=== PATIENT | female | born 1995 ===

== ENCOUNTER 2025-07-17 09:51 | Day surgery (SDC) | payer OTHER, SELFPAY ==
--- NOTE | 2025-07-17 | PATH_ITS ---
[facility] Accession Number: [id number] No. of containers..05 Tissue . 01 Material submitted: . PART A: small bowel - ILEUM,TERMINAL PART B: ileo-cecal valve - ILEAL CECAL VALVE PART C: colon - RIGHT COLON PART D: colon - TRANSVERSE COLON PART E: colon - LEFT COLON . 01 Clinical history: . HEMORRHAGE OF ANUS AND RECTUM. . 01 Diagnosis: A. TERMINAL ILEUM: Small bowel mucosa with no diagnostic abnormality. Negative for active inflammation, dysplasia, and malignancy. . B. ILEOCECAL VALVE: Colonic mucosa with focal ulceration. No infectious organisms, dysplasia, or malignancy. See comment. . C. RIGHT COLON: Colonic mucosa with no diagnostic abnormality. Negative for active, chronic, and microscopic colitis. Negative for dysplasia and malignancy. . D. TRANSVERSE COLON: Colonic mucosa with no diagnostic abnormality. Negative for active, chronic, and microscopic colitis. Negative for dysplasia and malignancy. . E. LEFT COLON: Colonic mucosa with no diagnostic abnormality. Negative for active, chronic, and microscopic colitis. Negative for dysplasia and malignancy. [facility] 07/27/2025 [facility]7 Local . 01 Comment: B. The histologic features raise a differential including drug-induced ulceration as well as infectious etiologies, amongst other possibilities. Clinical corrlation is recommended. . 01 Electronically signed: . Ashli Andre MD, Pathologist NPI- [id number] . 01 Gross description: . A. Received in formalin labeled with two patient identifiers and terminal ileum, and consists of two tobias tissues averaging 0.3 cm in greatest dimension which are submitted in toto in cassette A1. B. Received in formalin labeled with two patient identifiers and ileocecal valve, and consists of two tobias tissues averaging 0.2 cm in greatest dimension which are submitted in toto in cassette B1. C. Received in formalin labeled with two patient identifiers and right colon, and consists of two tobias tissues averaging 0.3 cm in greatest dimension which are submitted in toto in cassette C1. D. Received in formalin labeled with two patient identifiers and transverse colon, and consists of two tobias tissues averaging 0.2 cm in greatest dimension which are submitted in toto in cassette D1. ([id number]) . E. Received in formalin labeled with two patient identifiers and left colon, and consists of a single, 0.3 cm in greatest dimension tobias soft tissue. Submitted in toto in cassette E1. ([id number]) /[facility] 07/22/2025 2244 Local . 01 Pathologist provided ICD-10: K52.9, K62.5 . 01 CPT . 646246, 688250, 578655, 662188, 413572 Specimen Comment: A courtesy copy of this report has been sent to [phone] Performed at: [address] [address], [place], [place] [id number] MD Magdy Fish MD Phone: [phone]
[2025-07-17 10:30] VITALS: BP 115/78; PULSE 83; RESP 16; TEMP 36.8; O2SAT 100
--- NOTE | 2025-07-17 10:37 | PM.HP.IH.1 ---
History of Present Illness History of Present Illness Date Patient Seen: 07/17/25 Time Patient Seen: 10:37 Chief complaint: Dx Colonoscopy w/poss bx Narrative: Sandra is a 29-year-old woman with rectal bleeding and pain with a suspected fissure. See the prior office notes for details. PFSH Social History Smoking Status: Never smoker Meds Home Medications and Allergies Home Medications ?Medication ?Instructions ?Recorded ?Confirmed ?Type albuterol sulfate 90 mcg/actuation 2 puff inhalation Q6H PRN 02/16/25 07/17/25 History aerosol inhaler shortness of breath or wheezing Allergies Allergy/AdvReac Type Severity Reaction Status Date / Time egg Allergy Verified 07/17/25 10:27 Exam Vital Signs (past 8 hours): - 07/17/25 10:30 Temperature 98.2 F Pulse Rate 83 Respiratory Rate 16 Blood Pressure 115/78 Pulse Oximetry 100 Oxygen Delivery Method Room Air Oxygen Delivery Method Room Air Const General: No acute distress Assessment & Plan Assessment and plan (1) Blood in stool: Status: Acute Plan Colonoscopy Time-Based Coding :: [TOTAL MINUTES] spent with patient and on the chart (including review of chart, obtaining history, exam, reviewing outside data, placing orders, documenting exam and treatment plan, and counseling patient) on [DATE]. [employer] Document charge(s): No
[2025-07-17] MEDS: LACTATED RINGERS 1,000 ML 42 ML IV (10:42)
--- NOTE | 2025-07-17 11:10 | P.OP.COLON_ITS ---
Operative Date/Time/Diagnoses Date of procedure: 07/17/25 Time of procedure: 11:13 Pre-op diagnosis: Rectal bleeding Post-op diagnosis: same Procedure & Clinicians Study performed: Colonoscopy Same procedure(s) as scheduled: Yes Surgeon: Jl Ng Anesthesia Type: MAC +/- Procedure Notes Procedure in detail: Surgeon: Jl Ng MD Anesthesia: Karo Josee ASSOCIATE PROFESSOR OF GEOGRAPHY Procedure: The patient was brought to the endoscopy suite, placed in left lateral decubitus position. The patient was connected to monitoring devices. A time-out was performed. Sedation was administered. Once the patient was adequately sedated, a digital rectal exam was performed and was normal. No fissure was seen. The scope was then inserted and advanced to the cecum where the appendiceal orifice was identified and photographed. Terminal ileum was intubated. There appeared to be some mild terminal ileitis and random biopsies were taken from the terminal ileum with cold forceps. The scope was then slowly withdrawn. There was a small ulceration on the ileocecal valve and biopsies were taken it was bowel mucosa adjacent to the ulcer with forceps. Random biopsies were taken from the right colon, transverse colon and left colon. There were no gross abnormalities. The scope was retroflexed in the rectum. No other abnormalities were identified. The scope was straightened and removed. The patient was awakened and brought to recovery. Scope withdrawal time: 10 minutes Sedation time: 14 minutes EBL: 5 mL Findings: Mild terminal ileitis and small ulcer on the ileocecal valve Post-procedure Disposition: PACU
[2025-07-17 11:12] VITALS: BP 122/58; PULSE 74; RESP 10; TEMP 36.2; O2SAT 100
[2025-07-17 11:15] VITALS: BP 112/68; PULSE 75; RESP 22; O2SAT 100
[2025-07-17 11:23] VITALS: BP 126/74; PULSE 72; RESP 19; TEMP 36.2; O2SAT 100
== END 2025-07-17 11:33 | disposition home or self-care (01) ==
PROVIDERS: Referring Provider Surgery; Visit Provider Surgery
PROC: 0DJD8ZZ Inspection of Lower Intestinal Tract, Via Natural or Artificial Opening Endoscopic (ICD-10-PCS; CPT 45378; principal; 2025-07-17 11:30)
DX: K62.5 Hemorrhage of anus and rectum (principal); K63.3 Ulcer of intestine
CPT/HCPCS: 45380; J2704